=== PATIENT | male | born 1990 | race Two or more races ===

== ENCOUNTER → 2022-07-24 | Emergency (ER) | payer OTHER ==
[~2022-07-24] VITALS: Ht 180.3 cm; Wt 122.5 kg
== END | disposition home or self-care (01) ==
LOC: ER 14:21
DX: S90.454A Superficial foreign body, right lesser toe(s), initial encounter (principal); W45.8XXA Other foreign body or object entering through skin, initial encounter; Y93.01 Activity, walking, marching and hiking; Y92.832 Beach as the place of occurrence of the external cause